=== PATIENT | male | born 1955 | race Caucasian/White ===

== ENCOUNTER 2019-11-13 20:00 | Outpatient (CLI) | payer OTHER, SELFPAY | END 2019-11-13 20:01 | disposition home or self-care (01) | LOC: SLEEP 11-14 10:11 | PROVIDERS: Visit Provider Internal Medicine Pulmonary Disease | DX: G47.33 Obstructive sleep apnea (adult) (pediatric) (principal) | CPT/HCPCS: 95811 ==